=== PATIENT | male | born 1980 | race Caucasian/White ===

== ENCOUNTER 2024-12-09 09:48 | Outpatient (CLI) | payer OTHER, SELFPAY ==
[2024-12-09 10:03] LABS: Hematocrit 45.6 % (40.0-54.0); Hemoglobin 15.2 g/dL (14.0-18.0); Immature Granulocyte Percent A 0.2 % (0.0-0.0); Lymphocytes Absolute Auto 2.24 K/mm3 (1.10-4.50); Mean Corpuscular HGB Conc 33.3 g/dL (32-36); Mean Corpuscular Hemoglobin 29.5 pg (27.0-31.0); Mean Corpuscular Volume 88.5 fL (78.0-102.0); Nucleated Red Blood Cells Absolute Auto 0.00 K/mm3 (0.00-0.00); Nucleated Red Blood Cells Perc 0.0 % (0-0.0); Platelet Count Result 212 K/mm3 (150-420); Red Blood Count 5.15 M/mm3 (4.70-6.10); White Blood Count 8.4 K/mm3 (4.8-10.8)
[2024-12-09 10:50] LABS: Alanine Aminotransferase 96 U/L (6-50); Albumin Level 4.9 g/dL (3.5-5.1); Alkaline Phosphatase 53 U/L (38-126); Anion Gap 9 mmol/L (4-12); Aspartate Amino Transferase 71 U/L (17-59); Bilirubin,Total 0.8 mg/dL (0.2-1.3); Blood Urea Nitrogen 16 mg/dL (9-20); Calcium 9.7 mg/dL (8.4-10.2); Carbon Dioxide 28 mmol/L (22-30); Chloride 105 mmol/L (98-107); Cholesterol 231 mg/dL (0-200); Estimated Glomerular Filt Rate > 60; Glucose 79 mg/dL (65-110); HDL Direct 35 mg/dL; Osmolality Calculated 294 mOsm/kg (285-295); Potassium 4.7 mmol/L (3.4-5.0); Sodium 142 mmol/L (137-145); Total Protein 7.6 g/dL (6.3-8.2); Triglycerides 229 mg/dL (<150)
--- OUTSIDE RECORDS SUMMARY | 2024-12-09 11:05 | XMS_ITS | Clinical Summary ---
Author Organization [facility] Address [address] [place] [address] Care Team Providers Care Director Clinical Research Name Role Phone Yolanda CALDERON MD, Dannie Javier Primary Care Provider Allergies No known active allergies Medications fluticasone propionate 50 MCG/ACT nasal spray 1 spray by Nasal route daily. Active polycarbophil (FIBERCON) 625 MG tablet Take 1 tablet (625 mg total) by mouth daily. Active HYDROcodone-ac etaminophen (NORCO) 5-325 MG tabletIndicati ons:Acute Pain < 7 Day Supply Take 1-2 tablets by mouth every 6 (six) hours as needed for Pain. Indications: Acute Pain < 7 Day Supply For Moderate Pain 20 tablet 023 Active Additional Information Patient not taking.Reported on 06/04/2023 traMADol (ULTRAM) 50 MG tabletIndicati ons:Acute Pain < 7 Day Supply Take 1 tablet (50 mg total) by mouth every 6 (six) hours as needed for Pain. Indications: Acute Pain < 7 Day Supply 20 tablet 023 Active Additional Information Patient not taking.Reported on 04/30/2023 methylPREDNISo CONNIE setwart, (MEDROL DOSEPAK) 4 MG tabletIndicati ons:Hematoma,C ubital tunnel syndrome on right Take 1 tablet (4 mg total) by mouth see administration instructions. Follow package directions TAPER 1 each 023 Active Additional Information Patient not taking.Reported on 03/19/2023 AZELASTINE 137 MCG/SPRAY nasal sprayIndicatio ns:Allergic rhinitis, unspecified seasonality, unspecified trigger USE 2 SPRAYS INTO EACH NOSTRIL TWICE A DAY 30 mL 3 025 Active AZELASTINE 137 MCG/SPRAY nasal sprayIndicatio ns:Allergic rhinitis, unspecified seasonality, unspecified trigger INSTILL 2 SPRAYS INTO EACH NOSTRIL TWICE A DAY 30 mL 3 025 2024 Discontinued Active Problems Problem Noted Date Diagnosed Date Hiatal hernia 01/16/2023 Cubital tunnel syndrome on right 12/20/2022 Overview (12/20/2022): Added automatically from request for surgery [id number] Dyslipidemia 05/13/2021 Chronic midline low back pain without sciatica 0 04/28/2021 Left hip pain 04/28/2021 Allergic rhinitis GERD (gastroesophageal reflux disease) Irritable bowel syndrome with diarrhea Immunizations Immunization Administration Dates Next Due Influenza Adult (Generic) 12/26/2019 Family History Medical History Relation Comments Hypertension Father colon polyps Father Diabetes Maternal Grandmother hypothyroid Mother Relation Status Comments Father Maternal Grandmother Mother Social History Tobacco Use Types Packs/Day Years Used Date Smoking Tobacco: Never Smokeless Tobacco: Never Tobacco Cessation:Counseling Given: No Alcohol Use Standard Drinks/Week Comments Yes 0 (1 standard drink = 0.6 oz pur e alcohol) occasional/rare PHQ-2 Answer Date Recorded Patient Health Questionnaire-2 Score 0 04/30/2023 Sex and Gender Information Value Date Recorded Sex Assigned at Not on file Legal Sex Male 7:38 PM CDT Gender Identity Male 05/13/2021 6:28 AM STEAM CLOTHES PRESS OPERATOR Sexual Orientation Not on file Last Filed Vital Signs Vital Sign Reading Time Taken Comments Blood Pressure 129/88 04/30/2023 8:39 AM STEAM CLOTHES PRESS OPERATOR Pulse 74 04/30/2023 8:39 AM STEAM CLOTHES PRESS OPERATOR Temperature 36.4 C (97.5 F) 04/30/2023 8:39 AM STEAM CLOTHES PRESS OPERATOR Respiratory Rate 18 03/19/2023 1:14 PM STEAM CLOTHES PRESS OPERATOR Oxygen Saturation 98% 02/09/2023 10:07 AM STEAM CLOTHES PRESS OPERATOR Inhaled Oxygen Concentration - - Weight 96.4 kg (212 lb 9.6 oz) 04/30/2023 8:39 A M STEAM CLOTHES PRESS OPERATOR Height 175.3 cm (5' 9) 04/30/2023 8:39 AM STEAM CLOTHES PRESS OPERATOR Body Mass Index 31.4 04/30/2023 8:39 AM STEAM CLOTHES PRESS OPERATOR Plan of Treatment Health Maintenance Due Date Last Done Comments Annual Physical 1981 DTaP, Tdap and Td Vaccines ( 1 - Tdap) 1997 Hepatitis B Vaccines (1 of 3 - 19+ 3-dose series) 1997 PHQ-2 (Physician [place]) 04/02/2024 04/30/2023 COVID-19 Vaccine (4 - 2024-2 6 season) 2024 04/09/2021, 07/17/2020, 06/27/2020 Colorectal Cancer Screening Colonoscopy (10 Years) 05/20/2029 05/20/2019 Hepatitis C Completed 05/07/2021 Meningococcal B Vaccine Aged Out No l onger eligible based on patient's age to complete this topic Meningococcal Vaccine Aged Out No lisa rin eligible based on patient's age to complete this topic Pneumococcal Vaccine: Pediatrics (0 to 5 Years) and At-Risk Patients (6 to 49 Years) Aged Out No longer eligible b ased on patient's age to complete this topic RSV Immunizations Under 20 Months Aged Out No longer eligible b ased on patient's age to complete this topic Procedures Procedure Name Priority Date/Time Associated Diagnosis Comments HEPATITIS C ANTIBODY W/RFX TO HCV RNA Routine 05/07/2021 7:46 AM STEAM CLOTHES PRESS OPERATOR Encounter for hepatitis C screening test for low risk patient COLONOSCOPY/EGD GENERIC (SCAN ORDER) 05/20/2019 from Last 3 Months or Most Recently Relevant to Health Maintenance Results * HEPATITIS C ANTIBODY W/RFX TO HCV RNA ([facility] ONLY) (05/07/2021 7:46 AM STEAM CLOTHES PRESS OPERATOR) HEPATITIS C AB NON-REACTI VE NON-REACT LOIS [facility] SIGNAL TO CUTOFF 0.01 <1.[address] [facility] Comment: HCV antibody was non-reactive. There is no laboratory evidence of HCV infection. In most cases, no further action is required. However, if recent HCV exposure is suspected, a test for HCV RNA (test code 48831) is suggested. For additional information please refer to http://education.[employer]/faq/TGQ94t9 (This link is being provided for informational/ educational purposes only.) 05/07/2021 7:46 AM STEAM CLOTHES PRESS OPERATOR 05/07/2021 7:47 AM STEAM CLOTHES PRESS OPERATOR Narrative [facility] - 05/09/2021 12:26 PM STEAM CLOTHES PRESS OPERATOR FASTING:YES FASTING: YES us Dannie Guerrero II, MD LABORATORY Final R esult [facility] [address] [place] [address] * COLONOSCOPY/EGD GENERIC (05/20/2019) 05/20/2019 Narrative 05/20/2019 Ordered by an unspecified provider. us Documents Scanned SCANNING Final Result from Last 3 Months or Most Recently Relevant to Health Maintenance Care Teams Director Clinical Research Relationship Specialty Start Date End Date Dannie Guerrero II, MD [address] [place] [phone] PCP - General FAMILY PRACTICE 04/19/21
--- OUTSIDE RECORDS SUMMARY | 2024-12-09 11:05 | XMS_ITS | Encounter Summary ---
Author Organization [facility] Address [facility] [place] [address] Care Team Providers Care Loft Worker Apprentice Name Role Phone Yolanda CALDERON MD, Dannie Javier Primary Care Provider Encounter Details Date Type Department Care Team (Late st Contact Info) Description 04/12/2023 [employer] Message Enc [facility] Medical [facility] Orthopedic & Sports Medicine - [place] [address] [place] [address] [phone] Dajuan Garber MD [address] [place] [address] Update Social History Tobacco Use Types Packs/Day Years Used Date Smoking Tobacco: Never Smokeless Tobacco: Never Alcohol Use Standard Drinks/Week Comments Yes 0 (1 standard drink = 0.6 oz pur e alcohol) occasional/rare PHQ-2 Answer Date Recorded Patient Health Questionnaire-2 Score 0 09/07/2022 Sex and Gender Information Value Date Recorded Sex Assigned at Not on file Legal Sex Male 7:38 PM CDT Gender Identity Male 05/13/2021 6:28 AM SUPERVISOR BOARDING Sexual Orientation Not on file documented as of this encounter Plan of Treatment Not on file documented as of this encounter Visit Diagnoses Not on filedocumented in this encounter Additional Health Concerns Assessment Noted Time PHQ-9 Depression Total Score: 0 04/28/19 4:02 PM SUPERVISOR BOARDING documented as of this encounter Care Teams Loft Worker Apprentice Relationship Specialty Start Date End Date Dannie Guerrero II, MD [address] [place] [id number] PCP - General FAMILY PRACTICE 04/19/21 documented as of this encounter
--- OUTSIDE RECORDS SUMMARY | 2024-12-09 11:05 | XMS_ITS | Clinical Summary ---
Author Organization [facility] Care Team Providers Care Rn Maternity Name Role Phone Unavailable Primary Care Provider Unavailabl e Social History Tobacco Use Types Packs/Day Years Used Date Smoking Tobacco: Never Assessed Sex and Gender Information Value Date Recorded Sex Assigned at Not on file Legal Sex Male 11:16 AM GAS UTILITY WORKER Gender Identity Not on file Sexual Orientation Not on file Plan of Treatment Health Maintenance Due Date Last Done Comments Hepatitis C Virus (HCV) Screening 1978 TdaP Immunization 1978 Hepatitis B Immunization (1 of 3 - 19+ 3-dose series) 1997 Cologuard 2023 Colonoscopy 2023 Colorectal Cancer Screening 2023 Immunochemical Fecal Occult Blood 2023 SARS-COV-2 Immunization ( season) 2023 Influenza Immunization (#1) 2024 Respiratory Syncytial Virus (RSV) Immunization (Adult) (1 - 1-dose 75+ series) 2053 Human Papillomavirus (HPV) Immunization Aged Out No longer eligible b ased on patient's age to complete this topic Meningococcal Immunization (ACWY) Aged Out No longer eligible based on patient's age to complete this topic Pneumococcal Immunization Combined Aged Out No longer eligible based on patient's age to complete this topic Rotavirus Immunization Aged Out No lo nger eligible based on patient's age to complete this topic
[2024-12-09 11:19] LABS: Thyroid Stimulating Hormone Reflex 19.900 uIU/mL (0.465-4.68)
[2024-12-09 11:45] LABS: Free T4 Free Thyroxine Reflex 0.54 ng/dL (0.78-2.19)
== END 2024-12-09 09:49 | disposition home or self-care (01) ==
PROVIDERS: PCP Family Medicine; Visit Provider Family Medicine
DX: Z00.00 Encounter for general adult medical examination without abnormal findings (principal); E03.9 Hypothyroidism, unspecified
CPT/HCPCS: 36415; 80053; 80061; 84439; 84443; 85025

== ENCOUNTER 2024-12-18 17:42 | Outpatient (CLI) | payer OTHER, SELFPAY ==
--- NOTE | ~2024-12-18 | XR_ITS ---
EXAMINATION: XR elbow LT min 3V, 12/18/2024 18:20 CDT HISTORY: G56.23 - Lesion of ulnar nerve, bilateral upper limbs COMPARISON: No comparisons available. Findings: No acute fracture or malalignment. No significant degenerative changes. Soft tissues unremarkable. Impression: No acute fracture or malalignment. Reviewed, dictated and finalized at location A. Impression: No acute fracture or malalignment.
--- NOTE | ~2024-12-18 | XR_ITS ---
EXAMINATION: XR wrist LT min 3V, 12/18/2024 18:20 CDT HISTORY: M25.532 - Pain in left wrist COMPARISON: No comparisons available. Findings: No acute fracture or malalignment. No significant degenerative changes. Soft tissues unremarkable. Impression: No acute fracture or malalignment. Reviewed, dictated and finalized at location A. Impression: No acute fracture or malalignment.
--- OUTSIDE RECORDS SUMMARY | 2024-12-18 17:45 | XMS_ITS | Clinical Summary ---
Author Organization [facility] Address [address] [place] [address] Care Team Providers Care Drawing In Machine Tender Helper Name Role Phone Yolanda CALDERON MD, Dannie [...] Patient not taking.Reported on 04/30/2023 methylPREDNISo CONNIE stewart, (MEDROL DOSEPAK) 4 MG tabletIndicati ons:Hematoma,C ubital [...] (12/20/2022): Added automatically from request for surgery [id number] Dyslipidemia 05/13/2021 Chronic midline low back pain [...] CDT Gender Identity Male 05/13/2021 6:28 AM CHINESE MEDICINE PRACTITIONER Sexual Orientation Not on file Last Filed Vital Signs Vital Sign Reading Time Taken Comments Blood Pressure 129/88 04/30/2023 8:39 AM CHINESE MEDICINE PRACTITIONER Pulse 74 04/30/2023 8:39 AM CHINESE MEDICINE PRACTITIONER Temperature 36.4 C (97.5 F) 04/30/2023 8:39 AM CHINESE MEDICINE PRACTITIONER Respiratory Rate 18 03/19/2023 1:14 PM CHINESE MEDICINE PRACTITIONER Oxygen Saturation 98% 02/09/2023 10:07 AM CHINESE MEDICINE PRACTITIONER Inhaled Oxygen Concentration - - Weight 96.4 kg (212 lb 9.6 oz) 04/30/2023 8:39 A M CHINESE MEDICINE PRACTITIONER Height 175.3 cm (5' 9) 04/30/2023 8:39 AM CHINESE MEDICINE PRACTITIONER Body Mass Index 31.4 04/30/2023 8:39 AM CHINESE MEDICINE PRACTITIONER Plan of Treatment Health Maintenance Due Date Last Done Comments Annual Physical 1981 DTaP, Tdap and Td Vaccines ( 1 - Tdap) 1997 Hepatitis B Vaccines (1 of 3 - 19+ 3-dose series) 1997 PHQ-2 (Physician [place]) 04/02/2024 04/30/2023 COVID-19 Vaccine (4 - 2024-2 [...] TO HCV RNA Routine 05/07/2021 7:46 AM CHINESE MEDICINE PRACTITIONER Encounter for hepatitis C screening test for low risk patient COLONOSCOPY/EGD GENERIC (SCAN ORDER) 05/20/2019 from Last 3 Months or Most Recently Relevant to Health Maintenance Results * HEPATITIS C ANTIBODY W/RFX TO HCV RNA ([facility] ONLY) (05/07/2021 7:46 AM CHINESE MEDICINE PRACTITIONER) HEPATITIS C AB NON-REACTI VE NON-REACT LOIS [facility] SIGNAL TO CUTOFF 0.01 <1.[address] [facility] Comment: HCV antibody was non-reactive. There is no laboratory evidence of HCV infection. In most cases, no further action is required. However, if recent HCV exposure is suspected, a test for HCV RNA (test code 23276) is suggested. For additional information please refer to http://education.[employer]/faq/VGP07d2 (This link is being provided for informational/ educational purposes only.) 05/07/2021 7:46 AM CHINESE MEDICINE PRACTITIONER 05/07/2021 7:47 AM CHINESE MEDICINE PRACTITIONER Narrative [facility] - 05/09/2021 12:26 PM CHINESE MEDICINE PRACTITIONER FASTING:YES FASTING: YES us Dannie Guerrero II, MD LABORATORY Final R esult [facility] [address] [place] [address] * COLONOSCOPY/EGD GENERIC (05/20/2019) 05/20/2019 Narrative 05/20/2019 Ordered by an unspecified provider. us Documents Scanned SCANNING Final Result from Last 3 Months or Most Recently Relevant to Health Maintenance Care Teams Drawing In Machine Tender Helper Relationship Specialty Start Date End Date Dannie Guerrero II, MD [address] [place] [phone] PCP - General FAMILY PRACTICE 04/19/21
--- OUTSIDE RECORDS SUMMARY | 2024-12-18 17:45 | XMS_ITS | Encounter Summary ---
Author Organization [facility] Address [facility] [place] [address] Care Team Providers Care Sprayer Automatic Spray Machine Name Role Phone Yolanda CALDERON MD, Dannie Javier Primary Care Provider Encounter Details Date Type Department Care Team (Late st Contact Info) Description 04/12/2023 [employer] Message Enc [facility] Medical Group Orthopedic & Sports Medicine - [place] [address] [place] [address] [phone] Dajuan Garber MD [address] [place] [address] Update Social History Tobacco Use [...] CDT Gender Identity Male 05/13/2021 6:28 AM EQUINE PHARMACOLOGY TECHNICIAN Sexual Orientation Not on file documented as of this encounter Plan of Treatment Not on file documented as of this encounter Visit Diagnoses Not on filedocumented in this encounter Additional Health Concerns Assessment Noted Time PHQ-9 Depression Total Score: 0 04/28/19 4:02 PM EQUINE PHARMACOLOGY TECHNICIAN documented as of this encounter Care Teams Sprayer Automatic Spray Machine Relationship Specialty Start Date End Date Dannie Guerrero II, MD [address] [place] [phone] PCP - General FAMILY PRACTICE 04/19/21 documented as of this encounter
--- OUTSIDE RECORDS SUMMARY | 2024-12-18 17:45 | XMS_ITS | Clinical Summary ---
Author Organization [facility] Care Team Providers Care Hose Inspector And Patcher Name Role Phone Unavailable Primary Care Provider Unavailabl e Social History Tobacco Use Types Packs/Day Years Used Date Smoking Tobacco: Never Assessed Sex and Gender Information Value Date Recorded Sex Assigned at Not on file Legal Sex Male 11:16 AM MOLDING TECHNICIAN Gender Identity Not on file Sexual Orientation [...]
== END 2024-12-18 17:43 | disposition home or self-care (01) ==
LOC: CHSIMG 17:43
PROVIDERS: PCP Family Medicine; Visit Provider Family Medicine
DX: M25.532 Pain in left wrist (principal); G89.29 Other chronic pain; G56.23 Lesion of ulnar nerve, bilateral upper limbs
CPT/HCPCS: 73080; 73110

== ENCOUNTER 2024-12-22 07:27 | Outpatient (CLI) | payer OTHER, SELFPAY ==
--- NOTE | ~2024-12-22 | US_ITS ---
ULTRASOUND ABDOMEN LIMITED (RIGHT UPPER QUADRANT) Clinical History: R74.01 - Elevation of levels of liver transaminase levels Comparison: None Technique: Right upper quadrant sonography Findings: Liver: Normal size. Echogenic. No intrahepatic biliary ductal dilatation. Normal hepatopedal flow main portal vein. Common Duct: Normal caliber. 3 mm. Gallbladder: No stones. No wall thickening. No pericholecystic fluid. IMPRESSION: 1. Hepatic steatosis and/or diffuse hepatocellular disease. 2. No acute findings. Reviewed, dictated and finalized at location R.
== END 2024-12-22 07:28 | disposition home or self-care (01) ==
LOC: CHSIMG 07:28
PROVIDERS: PCP Family Medicine; Visit Provider Family Medicine
DX: R74.01 Elevation of levels of liver transaminase levels (principal); R93.2 Abnormal findings on diagnostic imaging of liver and biliary tract
CPT/HCPCS: 76705

== ENCOUNTER 2025-02-10 13:31 | Outpatient (CLI) | payer OTHER, SELFPAY ==
--- OUTSIDE RECORDS SUMMARY | 2025-02-10 13:36 | XMS_ITS | Encounter Summary ---
Author Organization [facility] Address [facility] [place] [address] Care Team Providers Care Field Marketing Coordinator Name Role Phone Yolanda CALDERON MD, Dannie Javier Primary Care Provider Encounter Details Date Type Department Care Team (Late st Contact Info) Description 04/12/2023 [employer] Message Enc [facility] Medical Group Orthopedic & Sports Medicine - [place] [address] [place] [address] [phone] Dajuan Garber MD [address] [place] [address] Update Social History Tobacco Use [...] CDT Gender Identity Male 05/13/2021 6:28 AM YEAST STACKER Sexual Orientation Not on file documented as of this encounter Plan of Treatment Not on file documented as of this encounter Visit Diagnoses Not on filedocumented in this encounter Additional Health Concerns Assessment Noted Time PHQ-9 Depression Total Score: 0 04/28/19 4:02 PM YEAST STACKER documented as of this encounter Care Teams Field Marketing Coordinator Relationship Specialty Start Date End Date Dannie Guerrero II, MD [address] [place] [phone] PCP - General FAMILY PRACTICE 04/19/21 documented as of this encounter
--- OUTSIDE RECORDS SUMMARY | 2025-02-10 13:36 | XMS_ITS | Clinical Summary ---
Author Organization [facility] Address [address] [place] [address] Care Team Providers Care Machine Accountant Name Role Phone Yolanda CALDERON MD, Dannie Javier Primary Care Provider Allergies No known active allergies Medications fluticasone propionate 50 MCG/ACT nasal spray 1 spray by Nasal route daily. Active polycarbophil (FIBERCON) 625 MG tablet Take 1 tablet (625 mg total) by mouth daily. Active HYDROcodone-darien taminophen (NORCO) 5-325 MG tabletIndicatio ns:Acute Pain < 7 Day Supply Take 1-2 tablets by mouth every 6 (six) hours as needed for Pain. Indications: Acute Pain < 7 Day Supply For Moderate Pain 20 tablet 02/10/20 Active Additional Information Patient not taking.Reported on 06/04/2023 traMADol (ULTRAM) 50 MG tabletIndicatio ns:Acute Pain < 7 Day Supply Take 1 tablet (50 mg total) by mouth every 6 (six) hours as needed for Pain. Indications: Acute Pain < 7 Day Supply 20 tablet 02/17/20 Active Additional Information Patient not taking.Reported on 04/30/2023 methylPREDNISol one, CONNIE, (MEDROL DOSEPAK) 4 MG tabletIndicatio ns:Hematoma,Cub ital tunnel syndrome on right Take 1 tablet (4 mg total) by mouth see administration instructions. Follow package directions TAPER 1 each 02/21/20 Active Additional Information Patient not taking.Reported on 03/19/2023 AZELASTINE 137 MCG/SPRAY nasal sprayIndication s:Allergic rhinitis, unspecified seasonality, unspecified trigger USE 2 SPRAYS INTO EACH NOSTRIL TWICE A DAY 30 mL 3 12/09/19 25 Active Active Problems Problem Noted Date Diagnosed Date Hiatal hernia 01/16/2023 Cubital tunnel syndrome on right 12/20/2022 Overview (12/20/2022): Added automatically from request for surgery [id number] Dyslipidemia 05/13/2021 Chronic midline low back pain [...] CDT Gender Identity Male 05/13/2021 6:28 AM CLIENT LIAISON Sexual Orientation Not on file Last Filed Vital Signs Vital Sign Reading Time Taken Comments Blood Pressure 129/88 04/30/2023 8:39 AM CLIENT LIAISON Pulse 74 04/30/2023 8:39 AM CLIENT LIAISON Temperature 36.4 C (97.5 F) 04/30/2023 8:39 AM CLIENT LIAISON Respiratory Rate 18 03/19/2023 1:14 PM CLIENT LIAISON Oxygen Saturation 98% 02/09/2023 10:07 AM CLIENT LIAISON Inhaled Oxygen Concentration - - Weight 96.4 kg (212 lb 9.6 oz) 04/30/2023 8:39 A M CLIENT LIAISON Height 175.3 cm (5' 9) 04/30/2023 8:39 AM CLIENT LIAISON Body Mass Index 31.4 04/30/2023 8:39 AM CLIENT LIAISON Plan of Treatment Health Maintenance Due Date Last Done Comments Annual Physical 1981 DTaP, Tdap and Td Vaccines ( 1 - Tdap) 1997 Hepatitis B Vaccines (1 of 3 - 19+ 3-dose series) 1997 PHQ-2 (Physician [place]) 04/02/2024 04/30/2023 COVID-19 Vaccine (2024-05 6 season) 2024 04/09/2021, 07/17/2020, 06/27/2020 Influenza Adult (#1) 2024 01/27/2021, 12/26/2019 Colorectal Cancer Screening Colonoscopy (10 Years) 05/20/2029 05/20/2019 Hepatitis C Completed 05/07/2021 Hepatitis A Vaccines Aged Out No long er eligible based on patient's age to complete this topic Meningococcal B Vaccine Aged Out No l [...] TO HCV RNA Routine 05/07/2021 7:46 AM CLIENT LIAISON Encounter for hepatitis C screening test for low risk patient COLONOSCOPY/EGD GENERIC (SCAN ORDER) 05/20/2019 from Last 3 Months or Most Recently Relevant to Health Maintenance Results * HEPATITIS C ANTIBODY W/RFX TO HCV RNA ([facility] ONLY) (05/07/2021 7:46 AM CLIENT LIAISON) HEPATITIS C AB NON-REACTI VE NON-REACT LOIS [facility] SIGNAL TO CUTOFF 0.01 <1.[address] [facility] Comment: HCV antibody was non-reactive. There is no laboratory evidence of HCV infection. In most cases, no further action is required. However, if recent HCV exposure is suspected, a test for HCV RNA (test code 85794) is suggested. For additional information please refer to http://education.[employer]/faq/UVB01k7 (This link is being provided for informational/ educational purposes only.) 05/07/2021 7:46 AM CLIENT LIAISON 05/07/2021 7:47 AM CLIENT LIAISON Narrative [facility] - 05/09/2021 12:26 PM CLIENT LIAISON FASTING:YES FASTING: YES us Dannie Guerrero II, MD LABORATORY Final R esult [facility] [address] [place] [address] * COLONOSCOPY/EGD GENERIC (05/20/2019) 05/20/2019 Narrative 05/20/2019 Ordered by an unspecified provider. us Documents Scanned SCANNING Final Result from Last 3 Months or Most Recently Relevant to Health Maintenance Care Teams Machine Accountant Relationship Specialty Start Date End Date Dannie Guerrero II, MD [address] [place] [address] PCP - General FAMILY PRACTICE 04/19/21
--- NOTE | 2025-02-10 13:40 | NEURO_ITS ---
Impression: # Non-diabetic, with history of right elbow surgery, complaining of increasing numbness. ? # No Carpal Tunnel Syndrome. ? # Mild Ulnar Neuropathy across the elbow. ? # Needle/ EMG exam of right Triceps neurogenic. ? # MRI of C. Spine recommended. ? # Declined left upper extremity exam. Nerve Conduction Studies ?Stim Site NR Peak (ms) P-T Amp (?V) Site1 Site2 Delta-P (ms) Dist (cm) Zyiad (m/s) Right Median Anti Sensory (2-3nd Digit) Wrist ? 3.0 39.2 Wrist 2-3nd Digit 3.0 14.0 47 Wrist ? 3.1 39.7 Wrist 2-3nd Digit 3.0 14.0 47 Right Radial Anti Sensory (Base 1st Digit) Wrist ? 2.3 22.2 Wrist Base 1st Digit 2.3 0.0 Right Ulnar Anti Sensory (5th Digit) Wrist ? 2.7 0.5 Wrist 5th Digit 2.7 14.0 52 ?Stim Site NR Onset (ms) O-P Amp (mV) Site1 Site2 Delta-0 (ms) Dist (cm) Ziyad (m/s) Right Median Motor (Abd Poll Brev) Wrist ? 3.7 5.0 Elbow Wrist 5.3 29.0 55 Elbow ? 9.0 5.9 Right Ulnar Motor (Abd Dig Minimi) Wrist ? 3.4 10.4 A Elbow Wrist 5.0 30.0 60 A Elbow ? 8.4 8.0 B Elbow Wrist 2.9 19.0 66 B Elbow ? 6.3 7.2 F Wave Studies ?NR F-Lat (ms) L-R F-Lat (ms) Right Median (Mrkrs) (Abd Poll Brev) ? 29.94 Right Ulnar (Mrkrs) (Abd Dig Min) ? 30.47 Electromyography ?Side Muscle Nerve Root Ins Act Fibs Amp Dur Recrt Comment Right 1stDorInt Ulnar C8-T1 Nml Nml Nml >12ms Nml Right Ext Indicis Radial (Post Int) C7-8 Nml Nml Nml Nml Nml Right Ext Digitorum Radial (Post Int) C7-8 Nml Nml Nml Nml Nml Right BrachioRad Radial C5-6 Nml Nml Nml Nml Nml Right PronatorTeres Median C6-7 Nml Nml Nml Nml Nml Right Abd Poll Brev Median C8-T1 Nml Nml Nml Nml Nml Right ABD Dig Min Ulnar C8-T1 Nml Nml Nml Nml Nml Right FlexPolLong Median (Ant Int) C7-8 Nml Nml Nml Nml Nml Right Abd Poll Long Radial (Post Int) C7-8 Nml Nml Nml Nml Nml Right Biceps Musculocut C5-6 Nml Nml Nml Nml Nml Right Triceps Radial C6-7-8 Nml Nml Incr >12ms +1 Right Deltoid Axillary C5-6 Nml Nml Nml Nml Nml
== END 2025-02-10 13:32 | disposition home or self-care (01) ==
LOC: ANHNEURO 13:34
PROVIDERS: PCP Family Medicine; Visit Provider Family Medicine
DX: G56.23 Lesion of ulnar nerve, bilateral upper limbs (principal)
CPT/HCPCS: 95886; 95909